=== PATIENT | female | born 1970 | race Caucasian/White ===

== ENCOUNTER 2018-01-21 18:04 | Outpatient (RCR) | payer BC, SELFPAY ==
--- NOTE | 2018-01-22 13:33 | HP.OTEVAL_ITS ---
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 Date of Evaluation: 01/21/18 Occupational Therapist: Jaimee Walsh - Subjective Subjective: Pt seen for intial occupational therapy evaluation for increased R hand pain, CMC joint and MP joint of R thumb. The pain started in November and continues to get worse. She started steroids a few days ago to help relieve her pain. The pain is limiting her abilities to complete BADLs, IADLs and work tasks. She has to do a lot of typing, texting and driving for her job which causes pain in her R hand. She is R hand dominent. Pt has been wearing a thumb spica splint. Pt has osteoarthritis and states old volleyball injuries to her hands from setting. - Pain Right Hand 3 - Objective Objective/Observation: Pt demo increased pain R hand CMC and MP joints limiting her independence with functional tasks and vocational tasks. - ROM ROM Comments: R hand WFL, L hand WFL. No difficulties noted with ROM bilateral hands. 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 Goal:: Pt will demo pain R hand no greater than 1/10 by d/c from OT Goal:: Pt will be educated on joint protection and energy conservation techniques for R hand/thumb with good understanding and demo 100%x. Goal:: Pt will demo increased lateral pinch R hand by 4# to increase strength for BADL tasks. Goal:: Pt will be educated on R hand HEP with good understanding and demo 100%x. - Rehabilitation General Assessment: Pt demo increased pain R hand, thumb region CMC joint, MP joint with all movement indicating a need for occupational therapy services to decrease pain R hand, educate on joint protection and energy conservation techniques, increase R hand strength and educated on HEP. Rehabilitation Potential: Good - Anticipated Interventions Anticipated Interventions: Strengthening, Massage, Modalities, Orthoses, Joint Protection/Energy Conservation, Ergonomic Education, Fine Motor Coord/Juan, ADL Training, Education re assistive Equipment, Education re Self Massage Techniques, Education re Correct Donning Tech,Care&Wearing Sched Comp Garments, Home Program - Visit Plan Frequency: 1-2x /Week Duration: 6 Weeks General Plan: Decrease pain R hand, CMC joint, MP joint of thumb, educate on joint protection and energy conservation techniques, increase R hand strength and educated on HEP R hand. TEXT: Thank you for the opportunity to evaluate your patient. For Medicare and Medicare HMO plans, please review the plan of care and approve it. It will need to be FAXED BACK to us at [phone] for Medicare purposes. Please let me know if there are questions or concerns regarding this plan of care. Physician Signature: Date:
--- NOTE | 2018-02-26 10:37 | HP.OT.NRP ---
HP - Discharge Summary - Patient Information PARMINDER MART was seen in my office for initial evaluation on 01/21/18. The following Plan of Care was established for this patient: Initial Frequency: 1-2x /Week Initial Duration: 6 Weeks - Anticipated Interventions Anticipated Interventions: Strengthening, Massage, Modalities, Orthoses, Joint Protection/Energy Conservation, Ergonomic Education, Fine Motor Coord/Juan, ADL Training, Education re assistive Equipment, Education re Self Massage Techniques, Education re Correct Donning Tech,Care&Wearing Sched Comp Garments, Home Program This patient was last seen in our office 01/21/18. Pertinent comments regarding their Occupational therapy will appear below: Pt seen for OT eval only. Pt d/c from OT services secondary to pt stating she will not be using her OT visits approved. At this point I will be discontinuing this patient from occupational therapy. I would be happy to see this patient again in the future if found appropriate by the physician. Thank you! Jaimee Walsh
== END 2018-01-21 19:00 | disposition home or self-care (01) ==
LOC: OT 18:04
PROVIDERS: Family Provider Family Medicine; PCP Family Medicine; Visit Provider Physician Assistant
DX: M19.041 Primary osteoarthritis, right hand (principal)
CPT/HCPCS: 97165

== ENCOUNTER → 2018-03-17 08:50 | Outpatient (CLI) | payer BC, SELFPAY ==
[2018-03-17 10:17] LABS: Absolute Lymphocyte Count 4.33 X10^3/ul (0.83-4.51); Absolute Neutrophil Count 6.1 X10^3/uL (2.0-7.7); Basophil# 0.02 X10^3/uL; Basophil% 0.2 % (0-1); Eosinophil# 0.31 X10^3/uL; Eosinophils% 2.7 % (0-5); Hemoglobin 13.1 g/dl (12.0-15.0); Lymphocyte # 4.33 X10^3/ul (4.0); Lymphocyte % 37.7 % (19-41); Mean Corp Hgb Conc 33.6 g/gl (32-36); Mean Corpuscular Hgb 30.3 pg (27.0-32.0); Mean Corpuscular Volume 90.1 fL (81-99); Mean Platelet Vol. 8.6 fl (6.2-12.0); Monocyte# 0.66 X10^3/uL; Monocyte% 5.7 % (0-10); Neutrophil # 6.12 X10^3/uL (2.7-7.7); Neutrophil % 53.4 % (47-70); Platelet Count 288 K/mm3 (150-450); RBC Distribution Width CV 13.5 % (11.6-14.6); RBC Distribution Width SD 43.7 fl (35.1-43.9); Red Blood Count 4.33 M/mm3 (4.2-5.4); White Blood Count 11.5 K/mm3 (4.4-11.0)
[2018-03-17 10:22] LABS: POSITIVE COUNT NO; POSITIVE DIFFERENTIAL NO; POSITIVE MORPHOLOGY NO
[2018-03-17 10:41] LABS: ALB/GLOB Ratio 0.8 RATIO (0.9-2.4); AST(SGOT) 17 U/L (15-37); Alanine Aminotransfer ALT/SGPT 21 U/L (13-56); Albumin, Serum 3.1 g/dL (3.2-5.0); Alkaline Phosphatase 100 U/L (45-117); Anion Gap 10 (5-15); BUN 11 mg/dL (7-18); BUN/Creat Ratio 15.7 RATIO (10-20); Chloride 105 mmol/L (98-107); EST Glomerular Filtration Rate 96 mL/min (>60); Est Glom Filt Rate - Afr Amer 116 mL/min (>60); Glucose 89 mg/dL (74-106); Potassium 3.9 mmol/L (3.5-5.1); Protein, Total 7.1 g/dL (6.4-8.2); Sodium Level 139 mmol/L (136-145); Thyroid Stim Hormone (TSH) 2.46 uIU/mL (0.358-3.74)
[2018-03-17 11:10] LABS: Hemoglobin A1c 5.4 % (4.2-6.3)
== END ==
PROVIDERS: Family Provider Family Medicine; PCP Family Medicine; Visit Provider Family Medicine
DX: R10.13 Epigastric pain (principal); E66.9 Obesity, unspecified; Z68.35 Body mass index [BMI] 35.0-35.9, adult
CPT/HCPCS: 36415; 80053; 83036; 84443; 85025

== ENCOUNTER → 2018-06-21 10:28 | Outpatient (CLI) | payer BC, SELFPAY ==
[2018-06-21 12:03] LABS: ALB/GLOB Ratio 0.7 RATIO (0.9-2.4); AST(SGOT) 18 U/L (15-37); Alanine Aminotransfer ALT/SGPT 21 U/L (13-56); Alkaline Phosphatase 106 U/L (45-117); Anion Gap 8 (5-15); BUN 10 mg/dL (7-18); Calcium,Total 8.6 mg/dL (8.5-10.1); Chloride 108 mmol/L (98-107); Creatinine, Serum 0.83 mg/dL (0.55-1.02); EST Glomerular Filtration Rate 79 mL/min (>60); Est Glom Filt Rate - Afr Amer 95 mL/min (>60); Globulin 4.1 g/dL (2.2-4.2); Glucose 170 mg/dL (74-106); Lipase 152 U/L (73-393); Potassium 3.6 mmol/L (3.5-5.1); Protein, Total 7.1 g/dL (6.4-8.2); Sodium Level 140 mmol/L (136-145); Thyroid Stim Hormone (TSH) 1.81 uIU/mL (0.358-3.74)
== END ==
PROVIDERS: Family Provider Family Medicine; PCP Family Medicine; Visit Provider Family Medicine
DX: R10.13 Epigastric pain (principal)
CPT/HCPCS: 36415; 80053; 83690; 84443

== ENCOUNTER → 2018-07-02 07:48 | Outpatient (CLI) | payer BC, SELFPAY | PROVIDERS: Family Provider Family Medicine; PCP Family Medicine; Visit Provider Family Medicine | DX: R10.13 Epigastric pain (principal) | CPT/HCPCS: 74249; 76700 ==

== ENCOUNTER → 2018-07-17 12:42 | Outpatient (CLI) | payer BC, SELFPAY ==
--- NOTE | 2018-07-17 12:47 | NM_ITS ---
CLINICAL: 47-year-old female with reported history of epigastric pain and chronic nausea. SEMI-SOLID PHASE 99m Tc SULFUR COLLOID GASTRIC EMPTYING STUDY COMPARISON: Air contrast upper GI series and small bowel follow-through report 07/02/2018, abdominal ultrasound report 07/02/2018 FINDINGS: The patient was administered 1.0 mCi of 99m Tc sulfur colloid mixed with oatmeal and consumed per os. Image acquisitions in the anterior-posterior projections for a total of 60 minutes. There is prompt visualization of the stomach. There is no gastroesophageal reflux identified. The T1/2 linear fit was calculated to be 39.42 minutes, (Normal: 12-56 minutes). NM/Gastric Emptying Study IMPRESSION: 1. NORMAL 99m Tc sulfur colloid semi-solid phase (oatmeal) gastric emptying imaging examination. A. There is normal and preserved semi-solid phase gastric emptying compared to normal controls. (Vesta et al, J Nucl Med Tech 38: 186, 2010). Electronically Signed: Jamel Rob DO at 23:41 EDT Tel , Service support ,
== END ==
PROVIDERS: Family Provider Family Medicine; PCP Family Medicine; Visit Provider Family Medicine
DX: R10.13 Epigastric pain (principal)
CPT/HCPCS: 78264; A9541

== ENCOUNTER → 2018-08-15 15:03 | Outpatient (CLI) | payer BC, SELFPAY | PROVIDERS: Family Provider Family Medicine; PCP Family Medicine; Referring Provider Family Medicine; Visit Provider Family Medicine | DX: R11.10 Vomiting, unspecified (principal); R19.7 Diarrhea, unspecified | CPT/HCPCS: 87177; 87209; 87329; 87493; 87506 ==

== ENCOUNTER → 2018-08-18 12:11 | Outpatient (CLI) | payer BC, SELFPAY ==
[2018-08-21 09:37] LABS: 5-HIAA, UR 1.7 mg/L (Undefined)
== END ==
PROVIDERS: Family Provider Family Medicine; PCP Family Medicine; Referring Provider Family Medicine; Visit Provider Family Medicine
DX: R19.7 Diarrhea, unspecified (principal); R11.10 Vomiting, unspecified
CPT/HCPCS: 81050; 83497

== ENCOUNTER → 2018-10-07 15:28 | Outpatient (CLI) | payer BC, SELFPAY ==
[2018-10-09 16:09] LABS: Endomysial Antibody IgA Negative (Negative)
[2018-10-10 11:50] LABS: Immunoglobulin A 245 mg/dL (87-352); t-Transglutaminase IgA <2 U/mL (0-3)
== END ==
PROVIDERS: Family Provider Family Medicine; PCP Family Medicine; Referring Provider Internal Medicine Gastroenterology; Visit Provider Internal Medicine Gastroenterology
DX: R10.9 Unspecified abdominal pain (principal); R19.7 Diarrhea, unspecified
CPT/HCPCS: 36415; 82784; 83516; 86140; 86255

== ENCOUNTER → 2018-10-24 15:41 | Outpatient (CLI) | payer BC, SELFPAY ==
--- NOTE | 2018-10-24 | IMM_PTH ---
PATIENT: PARMINDER MART LOC: [facility] U#:[id number] AGE/SX: 55/F ROOM: RE10/24/[address]: Dr. Willard Sears MD : 1970 BED: DIS: SPEC #: [id number] RECD: 10/29/18 12:28 STATUS: EDY REShan #: [id number] PARK: 10/24/18 00:[address]: Willard Sears DEPT: IMMUNOHISTOCHEMISTRY RECD BY: Maria Dolores De Jesus ENTERED: 10/29/18 12:29 SP TYPE: IMMUNO OTHR DR: Dr. Angel Graves MD Tissues: Stomach, NOS Procedures: H Pylori (initial) PHYSICIAN & INSTITUTION [place] [address] SPECIMEN INFORMATION: Tissue Source: Gastric antrum Clinical Info: GERD, nausea Specimen Number: [id number] CPT code: 37974 METHODOLOGY: Deparaffinized sections of prefer/formalin-fixed tissue or PAP/DQ stained slides are incubated with monoclonal/polyclonal antibodies/oligonucleotide probes. Localization is made via biotin free immunoperoxidase method. Appropriate controls are performed and reacted as expected. Results on target cell population are indicated in the following table: RESULTS: ANTIBODY / CLONE RESULT H Pylori (polyclonal) negative These tests were developed and their performance characteristics determined by [facility]. They may not have been cleared or approved by the U.S. Food and Drug Administration. The FDA has determined that such clearance or approval is not necessary. INTERPRETATION: Gastric antrum, biopsy: Negative for Helicobacter pylori organisms. AM:mian 10/30/18
--- NOTE | 2018-10-24 11:57 | GASB_PTH ---
PATIENT: PARMINDER MART LOC: [facility] U#:[id number] AGE/SX: 55/F ROOM: RE10/24/[address]: Dr. Willard Sears MD : 1970 BED: DIS: SPEC #: [id number] RECD: 10/24/18 15:31 STATUS: EDY STEPHANE #: [id number] PARK: 10/24/18 11:[address]: Willard Sears DEPT: SURGICAL PATHOLOGY RECD BY: Jamel Lao ENTERED: 10/27/18 13:19 SP TYPE: Gastric Bx OTHR DR: Dr. Angel Graves MD [facility] Tissues: Gastric mucous membrane Procedures: Surgery Specimen Level IV HEADER OPERATION: EGD with biopsies PRE-OP DIAGNOSIS: GERD, nausea TISSUE SUBMITTED: Gastric antrum biopsies, rule out gastritis MICROSCOPIC DIAGNOSIS Gastric antrum, biopsy: Mild gastritis. See microscopic description and comment. SJ:mian 10/29/18 COMMENT The results of immunohistochemistry for Helicobacter pylori will be reported separately ([id number]). MICROSCOPIC DESCRIPTION Slides are reviewed. The specimen shows fragments of gastric mucosa with chronic inflammatory cell infiltrates in the lamina propria consisting of lymphocytes and plasma cells, consistent with mild chronic gastritis. GROSS DESCRIPTION Received in fixative is one container labeled with the patient's name and designated gastric antrum biopsy. The specimen consists of multiple irregular fragments of light neal soft tissue that in aggregate measure 0.5 x 0.5 x 0.1 cm. The specimen is totally submitted in one cassette. / SJ:rg 10/27/18 TC:3 CPT: 63163
== END ==
PROVIDERS: Family Provider Family Medicine; PCP Family Medicine; Referring Provider Internal Medicine Gastroenterology; Visit Provider Internal Medicine Gastroenterology
DX: K21.9 Gastro-esophageal reflux disease without esophagitis (principal); R11.0 Nausea
CPT/HCPCS: 88305; 88342

== ENCOUNTER → 2018-12-05 16:14 | Outpatient (CLI) | payer BC, SELFPAY ==
--- NOTE | 2018-12-05 11:03 | COLBX_PTH ---
PATIENT: PARMINDER MART LOC: [facility] U#:[id number] AGE/SX: 55/F ROOM: RE12/05/[address]: Dr. Willard Sears MD : 1970 BED: DIS: SPEC #: [id number] RECD: 12/05/18 15:52 STATUS: EDY STEPHANE #: [id number] PARK: 12/05/18 11:[address]: Willard Sears DEPT: SURGICAL PATHOLOGY RECD BY: Babar Quinones ENTERED: 12/08/18 09:33 SP TYPE: COLON BX OTHR DR: Dr. Angel Graves MD [facility] Tissues: A - Ileum, NOS B - COLON BIOPSY Procedures: Surgery Specimen Level IV HEADER OPERATION: Colonoscopy with biopsies PRE-OP DIAGNOSIS: Chronic diarrhea TISSUE SUBMITTED: A - Terminal ileum, rule out Crohn's, B - Right and left colon biopsies, rule out microscopic colitis MICROSCOPIC DIAGNOSIS A. Terminal ileum, biopsy: Prominent benign lymphoid aggregates. See comment. B. Right and left colon, biopsy: No pathologic diagnosis. AM:mian 12/09/18 COMMENT A. No evidence of Crohn's enteritis. MICROSCOPIC DESCRIPTION Slides are reviewed. GROSS DESCRIPTION A - Received in fixative is one container labeled with the patient's name and designated terminal ileum. The specimen consists of one irregular fragment of light neal soft tissue that measures 0.4 x 0.2 x 0.1 cm. The specimen is totally submitted in one cassette. B - Received in fixative is one container labeled with the patient's name and designated right and left colon biopsy. The specimen consists of multiple irregular fragments of light neal soft tissue that in aggregate measure 1 x 0.6 x 0.1 cm. The specimen is totally submitted in one cassette. / AM:mian 12/08/18 TC:5 CPT: 72707 x2
== END ==
PROVIDERS: Family Provider Family Medicine; PCP Family Medicine; Referring Provider Internal Medicine Gastroenterology; Visit Provider Internal Medicine Gastroenterology
DX: K52.9 Noninfective gastroenteritis and colitis, unspecified (principal)
CPT/HCPCS: 88305

== ENCOUNTER → 2018-12-22 12:31 | Outpatient (CLI) | payer BC, SELFPAY ==
--- NOTE | 2018-12-22 12:36 | RAD_ITS ---
STUDY: X-RAY CHEST REASON FOR EXAM: Female, 48 years old. Cough and shortness of breath TECHNIQUE: PA and lateral views of the chest. COMPARISON: None. FINDINGS: The lungs are clear and expanded. There is no demonstrated pleural abnormality. Normal size heart. Normal mediastinum and laure. Normal visualized pulmonary arteries. Normal visualized aortic arch and descending thoracic aorta. Dextroscoliosis is noted with scoliosis fixation rods. Normal visualized ribs, clavicles, and shoulders. There is no demonstrated abnormality of the visualized soft tissue structures of the upper abdomen. RAD/Chest PA and Lateral IMPRESSION: No acute cardiopulmonary disease Electronically Signed: Ozzy Alonso DO at 12:59 EST Tel , Service support ,
[2018-12-24 10:35] LABS: B. pertussis IgA 1.6 index (0.0-0.9); B. pertussis IgG 1.32 index (0.00-0.94); B. pertussis IgM < 1.0 index (0.0-0.9)
== END ==
PROVIDERS: Family Provider Family Medicine; PCP Family Medicine; Referring Provider Family Medicine; Visit Provider Family Medicine
DX: R05 Cough (principal)
CPT/HCPCS: 36415; 71046

== ENCOUNTER → 2019-02-02 17:18 | Outpatient (CLI) | payer BC, SELFPAY ==
[2019-02-02 17:39] LABS: Absolute Lymphocyte Count 4.27 X10^3/ul (0.83-4.51); Absolute Neutrophil Count 6.1 X10^3/uL (2.0-7.7); Basophil# 0.02 X10^3/uL; Basophil% 0.2 % (0-1); Eosinophil# 0.29 X10^3/uL; Eosinophils% 2.5 % (0-5); Hematocrit 41.7 % (37-47); Hemoglobin 13.5 g/dl (12.0-15.0); Lymphocyte # 4.27 X10^3/ul (4.0); Lymphocyte % 37.4 % (19-41); Mean Corp Hgb Conc 32.4 g/gl (32-36); Mean Corpuscular Hgb 28.2 pg (27.0-32.0); Mean Corpuscular Volume 87.1 fL (81-99); Mean Platelet Vol. 8.2 fl (6.2-12.0); Monocyte# 0.68 X10^3/uL; Neutrophil # 6.12 X10^3/uL (2.7-7.7); Neutrophil % 53.6 % (47-70); Platelet Count 307 K/mm3 (150-450); RBC Distribution Width CV 13.8 % (11.6-14.6); RBC Distribution Width SD 43.3 fl (35.1-43.9); Red Blood Count 4.79 M/mm3 (4.2-5.4); White Blood Count 11.4 K/mm3 (4.4-11.0)
[2019-02-02 17:40] LABS: POSITIVE COUNT NO; POSITIVE DIFFERENTIAL NO; POSITIVE MORPHOLOGY NO
[2019-02-02 17:52] LABS: Erythrocyte Sedimentation Rate 23 mm/hr (0-20)
[2019-02-02 18:02] LABS: ALB/GLOB Ratio 0.8 RATIO (0.9-2.4); AST(SGOT) 17 U/L (15-37); Alanine Aminotransfer ALT/SGPT 25 U/L (13-56); Albumin, Serum 3.4 g/dL (3.2-5.0); Alkaline Phosphatase 120 U/L (45-117); Anion Gap 7 (5-15); BUN 10 mg/dL (7-18); BUN/Creat Ratio 10.5 RATIO (10-20); Chloride 107 mmol/L (98-107); Creatinine, Serum 0.95 mg/dL (0.55-1.02); EST Glomerular Filtration Rate 67 mL/min (>60); Est Glom Filt Rate - Afr Amer 81 mL/min (>60); Globulin 4.4 g/dL (2.2-4.2); Glucose 134 mg/dL (74-106); Potassium 3.7 mmol/L (3.5-5.1); Protein, Total 7.8 g/dL (6.4-8.2); Sodium Level 139 mmol/L (136-145)
== END ==
PROVIDERS: Family Provider Family Medicine; PCP Family Medicine; Referring Provider Family Medicine; Visit Provider Family Medicine
DX: R10.31 Right lower quadrant pain (principal)
CPT/HCPCS: 36415; 80053; 85025; 85652; 86140

== ENCOUNTER → 2019-02-03 10:36 | Outpatient (CLI) | payer BC, SELFPAY ==
--- NOTE | 2019-02-03 10:41 | CT_ITS ---
STUDY: CT ABDOMEN AND PELVIS WITH AND WITHOUT CONTRAST REASON FOR EXAM: Female, 48 years old. One-week history of right lower quadrant pain and hematuria. RADIATION DOSAGE (If Supplied By Facility): CTDIvol = ( 22.92 ) mGy, DLP = ( 2149.72 ) mGycm TECHNIQUE: Transaxial images were obtained from the dome of the diaphragm to the symphysis pubis with oral contrast. 100ML IV/Oral Isovue 300 was administered. Sagittal and coronal images were reconstructed. Individualized dose optimization techniques were used for this CT. COMPARISON: None. FINDINGS: The visualized lung bases are unremarkable. The visualized portions of the heart are within normal limits. Normal liver. There are surgical clips in the gallbladder fossa consistent with a prior cholecystectomy. There are multiple benign calcified granulomata of the spleen. Normal pancreas. Normal bilateral adrenal glands. Normal right kidney. Normal left kidney. Normal visualized stomach. Normal small intestine. There are scattered colonic diverticula consistent with diverticulosis. Moderate amount of fecal material is seen in the colon. There are surgical clips in the region of the appendix consistent with a prior appendectomy. Normal abdominal aorta. Normal inferior vena cava. Normal retroperitoneum. Normal urinary bladder. There is a small umbilical hernia containing fat. Mild dextroscoliosis of the thoracic spine with Hauser phil fixation. CT/CT Abd/Pelvis W/WO Contrast IMPRESSION: Scattered sigmoid diverticulosis. Electronically Signed: Qamar Andrew, at 13:08 EDT , Service support ,
== END ==
PROVIDERS: Family Provider Family Medicine; PCP Family Medicine; Referring Provider Family Medicine; Visit Provider Family Medicine
DX: R10.31 Right lower quadrant pain (principal)
CPT/HCPCS: 74178; Q9967

== ENCOUNTER → 2019-10-13 11:51 | Outpatient (CLI) | payer BC, SELFPAY ==
[2019-10-13 11:55] LABS: Bacteria 0 SEEN /hpf (None Seen); Lyme Ab Screen Interpretation REF LAB; Mucous, Urine 0 SEEN /hpf (<or=2+); Red Blood Cells-Urine 0 SEEN /hpf (0-5); White Blood Cells 0 SEEN /hpf (0-5)
[2019-10-13 13:53] LABS: Erythrocyte Sedimentation Rate 50 mm/hr (0-20)
[2019-10-13 13:57] LABS: Color, Urine Yellow (Yellow); Glucose, Dipstick Normal (Normal); Ketone-Dipstick Negative (Negative); Leukocyte Esterase-Dipstick Negative /ul (Negative); Nitrite-Dipstick Negative (Negative); Occult Blood-Urine Negative /ul (Negative); Protein-Dipstick Negative (Negative); Specific Gravity, Urine 1.005 (1.002-1.030); Urine Bilirubin Dipstick Negative (Negative); Urine Clarity Sl. Cloudy (Clear); Urine Urobilinogen Normal (Normal)
[2019-10-13 14:04] LABS: Absolute Lymphocyte Count 2.31 X10^3/uL (0.83-4.51); Absolute Neutrophil Count 11.2 X10^3/uL (2.0-7.7); Basophil# 0.02 X10^3/uL; Basophil% 0.1 % (0-1); Hematocrit 42.2 % (37-47); Hemoglobin 13.8 g/dL (12.0-15.0); Lymphocyte # 2.31 X10^3/ul (4.0); Mean Corp Hgb Conc 32.7 g/dL (32-36); Mean Corpuscular Hgb 29.4 pg (27.0-32.0); Mean Platelet Vol. 8.5 fl (6.2-12.0); Monocyte# 0.81 X10^3/uL; Monocyte% 5.6 % (0-10); NRBC Flagged by Analyzer 0 % (0-5); Neutrophil # 11.22 X10^3/uL (2.7-7.7); Neutrophil % 77.8 % (47-70); Platelet Count 337 K/mm3 (150-450); RBC Distribution Width CV 13.1 % (11.6-14.6); RBC Distribution Width SD 42.7 fl (35.1-43.9); Red Blood Count 4.69 M/mm3 (4.2-5.4); White Blood Count 14.4 K/mm3 (4.4-11.0)
[2019-10-13 14:05] LABS: Squamous Epithelial Cells - UA 0-5 SEEN /hpf (5-10)
[2019-10-13 14:08] LABS: CRP 7.56 mg/L (0.0-3.0)
[2019-10-14 15:02] LABS: ANTINUCLEAR ANTIBODIES DIRECT Negative (Negative)
[2019-10-16 03:07] LABS: QNTFERON TB Mitogen Value 9.39 IU/mL (.); QNTFERON TB Nil Value 0.08 IU/mL (.); QNTFERON TB1+ Ag Value 0.09 IU/mL (.); QNTFERON TB2+ Ag Value 0.09 IU/mL (.)
[2019-10-16 09:53] LABS: Lyme Scn Total Ab w/Rflx <0.91 ISR (0.00-0.90); QNTIFERON TB Positive Criteria Negative (Negative)
== END ==
PROVIDERS: Family Provider Family Medicine; PCP Family Medicine; Visit Provider Family Medicine
DX: D72.829 Elevated white blood cell count, unspecified (principal)
CPT/HCPCS: 36415; 81001; 85025; 85652; 86038; 86140; 86480; 86618; 87086; 87088

== ENCOUNTER → 2019-10-15 12:37 | Outpatient (CLI) | payer BC, SELFPAY ==
--- NOTE | 2019-10-15 12:45 | CT_ITS ---
STUDY: CT MAXILLOFACIAL SINUSES REASON FOR EXAM: Female, 49 years old. Leukocytosis RADIATION DOSAGE (If Supplied By Facility): CTDIvol = ( 33.45 ) mGy, DLP = ( 545.52 ) mGycm TECHNIQUE: The patient was scanned in a multi detector CT scanner. High resolution axial imaging was performed without the administration of intravenous contrast material. Sagittal and coronal images were reconstructed. Individualized dose optimization techniques were used for this CT. COMPARISON: None. FINDINGS: FRONTAL SINUSES: Normal aeration, without mucosal inflammatory disease. ETHMOIDAL SINUSES: Normal aeration, without mucosal inflammatory disease. MAXILLARY SINUSES: Air-filled mucous retention cyst in the right maxilla sinus consistent with chronic sinusitis. SPHENOIDAL SINUSES: Normal aeration, without mucosal inflammatory disease. There is patency of the bilateral maxillary infundibuli with normal uncinate processes, ethmoid bullae, and hiatus semilunaris. The right ostiomeatal unit is stenotic but felt to be patent. Normal bilateral middle turbinates. Normal bilateral inferior turbinates. Normal midline nasal septum. There is patency of the bilateral nasal airways. The visualized osseous structures are normal. The visualized bilateral orbital contents are normal. CT/Sinus/Facial Bone IMPRESSION: Chronic right maxillary sinusitis with a air-filled mucous retention cyst. Electronically Signed: Jamel Fox MD at 16:29 EST Tel , Service support ,
== END ==
PROVIDERS: Family Provider Family Medicine; PCP Family Medicine; Referring Provider Family Medicine; Visit Provider Family Medicine
DX: J32.9 Chronic sinusitis, unspecified (principal)
CPT/HCPCS: 70486

== ENCOUNTER → 2019-10-26 13:51 | Outpatient (CLI) | payer BC, SELFPAY ==
--- NOTE | 2019-10-26 13:53 | CT_ITS ---
STUDY: CT ABDOMEN AND PELVIS WITH CONTRAST REASON FOR EXAM: Female, 49 years old. RLQ pain x 8 months, elevated WBC and amp; inflammation markers. Prior cholecystectomy, appendectomy, x 2. RADIATION DOSAGE (If Supplied By Facility): CTDIvol = ( 18.01 ) mGy, DLP = ( 1093.36 ) mGycm TECHNIQUE: Transaxial images were obtained from the dome of the diaphragm to the symphysis pubis with oral contrast. 100mL Isovue-300 was administered. Sagittal and coronal images were reconstructed. Individualized dose optimization techniques were used for this CT. COMPARISON: None. FINDINGS: There is right lower lung granuloma. The visualized portions of the heart are within normal limits. There is hepatomegaly with diffuse hepatic enlargement. There are surgical clips in the gallbladder fossa consistent with a prior cholecystectomy. There are multiple benign calcified granulomata of the spleen. Normal pancreas. Normal bilateral adrenal glands. Normal right kidney. Normal left kidney. Normal visualized stomach. Normal small intestine. Normal colon. There are surgical clips in the region of the appendix consistent with a prior appendectomy. Normal abdominal aorta. Normal inferior vena cava. Normal retroperitoneum. Normal urinary bladder. Normal visualized uterus. There is no free fluid in the abdomen or pelvis. There is a small umbilical hernia containing fat. There is scoliotic curvature of the spine. There is postoperative change of the thoracic spine. CT/Abdomen/Pelvis WITH Contrast IMPRESSION: Hepatomegaly. Old granulomatous disease. No obstruction. Electronically Signed: Oscar Zarate MD at 22:00 EST , Service support ,
== END ==
PROVIDERS: Family Provider Family Medicine; PCP Family Medicine; Referring Provider Family Medicine; Visit Provider Family Medicine
DX: R10.31 Right lower quadrant pain (principal)
CPT/HCPCS: 74177; Q9967

== ENCOUNTER → 2019-11-03 15:48 | Outpatient (CLI) | payer BC, SELFPAY ==
[2019-11-03 16:30] LABS: Absolute Lymphocyte Count 3.95 X10^3/uL (0.83-4.51); Absolute Neutrophil Count 5.7 X10^3/uL (2.0-7.7); Basophil# 0.03 X10^3/uL; Basophil% 0.3 % (0-1); Eosinophil# 0.33 X10^3/uL; Eosinophils% 3.1 % (0-5); Hematocrit 38.4 % (37-47); Hemoglobin 12.6 g/dL (12.0-15.0); Lymphocyte # 3.95 X10^3/ul (4.0); Lymphocyte % 37.6 % (19-41); Mean Corp Hgb Conc 32.8 g/dL (32-36); Mean Corpuscular Hgb 29.1 pg (27.0-32.0); Mean Corpuscular Volume 88.7 fL (81-99); Mean Platelet Vol. 8.2 fl (6.2-12.0); Monocyte# 0.45 X10^3/uL; Monocyte% 4.3 % (0-10); NRBC Flagged by Analyzer 0 % (0-5); Neutrophil # 5.73 X10^3/uL (2.7-7.7); Neutrophil % 54.5 % (47-70); Platelet Count 275 K/mm3 (150-450); RBC Distribution Width CV 13.1 % (11.6-14.6); RBC Distribution Width SD 42.5 fl (35.1-43.9); Red Blood Count 4.33 M/mm3 (4.2-5.4); White Blood Count 10.5 K/mm3 (4.4-11.0)
[2019-11-03 16:44] LABS: Erythrocyte Sedimentation Rate 32 mm/hr (0-20)
== END ==
PROVIDERS: Family Provider Family Medicine; PCP Family Medicine; Referring Provider Family Medicine; Visit Provider Family Medicine
DX: D72.829 Elevated white blood cell count, unspecified (principal)
CPT/HCPCS: 36415; 85025; 85652; 86140

== ENCOUNTER → 2019-12-21 | Outpatient (CLI) | payer BC, SELFPAY ==
[2019-12-21 13:53] LABS: Absolute Neutrophil Count 5.4 X10^3/uL (2.0-7.7); Basophil# 0.03 X10^3/uL; Basophil% 0.3 % (0-1); Eosinophils% 2.9 % (0-5); Hematocrit 38.6 % (37-47); Hemoglobin 12.2 g/dL (12.0-15.0); Lymphocyte % 38.1 % (19-41); Mean Corp Hgb Conc 31.6 g/dL (32-36); Mean Corpuscular Hgb 28.3 pg (27.0-32.0); Mean Corpuscular Volume 89.6 fL (81-99); Mean Platelet Vol. 8.5 fl (6.2-12.0); Monocyte# 0.59 X10^3/uL; Monocyte% 5.8 % (0-10); NRBC Flagged by Analyzer 0 % (0-5); Neutrophil % 52.7 % (47-70); Platelet Count 282 K/mm3 (150-450); RBC Distribution Width SD 42.7 fl (35.1-43.9); Red Blood Count 4.31 M/mm3 (4.2-5.4); White Blood Count 10.2 K/mm3 (4.4-11.0)
[2019-12-21 14:12] LABS: ALB/GLOB Ratio 0.9 RATIO (0.9-2.4); AST(SGOT) 15 U/L (15-37); Alanine Aminotransfer ALT/SGPT 34 U/L (13-56); Albumin, Serum 3.5 g/dL (3.2-5.0); Alkaline Phosphatase 144 U/L (45-117); Anion Gap 4 (5-15); BUN 13 mg/dL (7-18); BUN/Creat Ratio 17.5 RATIO (10-20); Calcium,Total 9.4 mg/dL (8.5-10.1); Chloride 107 mmol/L (98-107); Creatinine, Serum 0.74 mg/dL (0.55-1.02); EST Glomerular Filtration Rate 89 mL/min (>60); Est Glom Filt Rate - Afr Amer 108 mL/min (>60); Globulin 3.9 g/dL (2.2-4.2); Glucose 94 mg/dL (74-106); Potassium 4.4 mmol/L (3.5-5.1); Protein, Total 7.4 g/dL (6.4-8.2); Sodium Level 140 mmol/L (136-145)
== END | disposition home or self-care (01) ==
LOC: MFPLAB 11:47
PROVIDERS: PCP Family Medicine; Referring Provider Family Medicine; Visit Provider Family Medicine
DX: Z01.818 Encounter for other preprocedural examination (principal)
CPT/HCPCS: 36415; 80053; 85025

== ENCOUNTER 2020-01-01 06:08 | Day surgery (SDC) | payer BC, SELFPAY ==
[2020-01-01] VITALS (12 sets, daily range): BP systolic 119–128; BP diastolic 64–85; PULSE 80–100; RESP 16; TEMP 36.7–37.2; O2SAT 91–97; BMI 37.2
[2020-01-01] MEDS: Lactated Ringers 1,000 ML 100 ML IV (06:52)
[2020-01-01 07:10] LABS: Internal QC Validated? YES +Cl - CLEAR BKGD; Pregnancy, Urine Negative Negative
[2020-01-01] MEDS: Cefazolin 2 GM in 0.9% Normal Saline 100 ML IV (07:30)
--- NOTE | 2020-01-01 07:30 | RAD_ITS ---
STUDY: X-RAY - LEFT FOOT CLINICAL: Female, 49 years old. Left foot bunion correction including fusion, mary of the left great toe, 2nd hammer toe correction with mid foot fusion, internal fixation with bone grafts. TECHNIQUE: 13 view(s) of the foot. COMPARISON: None. FINDINGS: There is fusion with plate and multiple screws of the first metatarsal tarsal articulation. There are orthopedic andra and screws stabilizing the second and third metatarsal tarsal articulations. There is status post osteotomy changes of the mid shaft of the first proximal phalanx stabilized with staple. There is fixation of the second digital ray with screw. RAD/Foot min 3 Views IMPRESSION: Intraoperative postsurgical changes of the left foot as detailed above. A total of 110.8 seconds of fluoroscopy time was used. Estimated radiation dose 2.63 mGy Electronically Signed: Kevin Villeda MD at 17:28 EST , Service support ,
[2020-01-01] MEDS: Bupivacaine Mpf 0.5% 30 ML VIAL (12:00)
--- NOTE | 2020-01-01 12:32 | OP.PCM_ITS ---
Problem List (1) Hallux valgus (acquired), left foot Status: Chronic (2) Hammer toe of left foot Status: Chronic (3) Secondary osteoarthritis, left ankle and foot Status: Chronic (4) Left foot pain Status: Chronic Report of Operation Date of Procedure: 01/01/20 Pre-Operative Diagnosis: Left foot hallux valgus. Left foot second hammertoe. Left foot symptomatic midfoot arthritis Post-Operative Diagnosis: Left foot hallux valgus. Left foot second hammertoe. Left foot symptomatic midfoot arthritis Surgery/Procedure Performed:: -Left foot bunionectomy including arthrodesis of first metatarsal cuneiform arthrodesis with internal fixation. -Left mary osteotomy with internal fixation. -Left foot second and third tarsometatarsal arthrodesis with internal fixation. -Left foot second hammer digit syndrome correction including arthrodesis of the proximal interphalangeal joint Description of Surgical Findings:: Hemostasis: Well-padded pneumatic left ankle tourniquet, 250 mmHg, 120 minutes, 60 minutes Materials: 2-0 Vicryl, 4-0 nylon, 1 Arthrex plantar Lapidus plate with fully threaded cancellous screw, 2 cortical screws, 2 locking screws, 3?2.5 FT compression screws, 3 andra Specimens: None Complications: None The patient tolerated the procedure and anesthesia well. She was transported to the PACU with vital signs stable and vascular status intact to the left lower extremity. She will be discharged home pending continued stability and pain control. Postoperative x-rays were reviewed prior to leaving the operating room which demonstrated adequate deformity correction and also desired placement of hardware including the trajectory and position. No acute injuries were noted. She will remain nonweightbearing and will ice and elevate for pain and inflammation management. Her postoperative orders were entered electronically. escalator constructor: none - Surgeon: Sherry Doshi DPM. Sheet Metal Shop Foreman: Gokul Iniguez PGY2 Type of Anesthesia:: General, Local - Preoperative: One-to-one mixture of 1% lidocaine plain and 0.5% Marcaine plain administered in typical ankle block fashion, 20 cc Postoperative: One-to-one mixture of 1% lidocaine plain and 0.5% Marcaine plain ministered and typical ankle block fashion local infiltration to surgical sites, 20 cc Specimen's removed: None Estimated Blood Loss (mL): <200 mL Description of Procedure: Indications: This 49-year-old female with significant past medical history of inflammatory bowel disease, depression, and scoliosis continues to have ongoing left chronic foot pain in which she is unable to bear weight in a shoe without significant pain. Her pain is affecting her daily activities and she has failed conservative care including activity modification, rest, elevation, [id number] medications, foot exercises, shoe gear change. Her neurovascular status is intact. She has a clinic bunion that is symptomatic with prominent medial eminence of the first metatarsal head, lateral hallux deviation, pain to palpate dorsal contraction of second digit, and pain to palpate and manipulate the midfoot. Radiographically preoperatively, she demonstrates lateral hallux deviation with increased intermetatarsal angle and lateral appearance of the sesamoid apparatus and also some proximal gapping at the proximal first intermetatarsal space. This is consistent with a triplanar first ray deformity. She also has dorsal contraction of the second toe. She also has some diminished joint spaces to the second and third metatarsal tarsal aspects. She was seen prior at the [facility] and had a CT scan performed and this confirmed that she did have some degenerative changes to the second and third metatarsal tarsal articulations as well consistent with arthritis. She kept track of the location of her pain by marking her foot and it seems pretty consistent with the aforementioned areas. She does have a breaking metatarsal, however this is not clinically uncomfortable. Her neurovascular status is intact. The preoperative indication, planned procedure, possible benefits, risk, complications, and anticipated healing time management were discussed in detail with the patient. She understands and elects to proceed with surgery at this time. No guarantees are made. Informed surgical consent and the surgical limb were signed. She understands the risks and complications include but are not limited to the following: pain, swelling, scarring, over or under correction, arthritis, hardware failure, transfer lesions, need for further surgery, loss of limb, function, life, chronic pain, blood clot, allergic reaction. Her preoperative medical clearance with Dr. Regalado was reviewed including diagnostic data of CBC, CMP, and urine . No gross abnormalities were noted. I answered all of her questions. Procedure in detail: The patient was transported to the operating room via cart and placed on the operating table in the supine position. Final verification the patient, surgery, limb designation was performed via the timeout procedure. IV antibiotics were administered preoperatively. The anesthesia team initiated general anesthesia. The podiatry team administered the preoperative local anesthetic. A well padded left ankle tourniquet was placed in a well padded manner. The left lower extremity was prepped and draped in the usual aseptic manner. An Esmarch bandage was used to exsanguinate the left limb and surgery began the following: Attention was first directed at the medial aspect of the first metatarsal cuneif orm articulation area in which a medial incision was made through the skin. Blunt dissection was performed down to the interface between the abductor hallucis muscle belly and plantar first metatarsal. Care was taken to identify, protect, and retract all neurovascular structures at this point and throughout the remainder of surgery. The desired interface was identified and carefully dissected. The first metatarsocuneiform articulation was identified clinically and confirmed with intraoperative fluoroscopy. A 15 blade, osteotomes and curettes were used to denude the articular surface down to bleeding healthy subchondral bone in the remaining bone surfaces were mobilized to allow for correction. A k-wire and tenaculum were placed with the first metatarsal now with varus rotation correction achieved. Sesamoid reduction, decreased first intermetatarsal angle, and [id number] approximation was confirmed with intraoperative fluoroscopy. Cancellous bone chips were placed into the art hrodesis site and temporary fixation across the site with K wires placed. A plantar Arthrex Lapidus plate was fashioned and temporary held in place with wires and BB taks. The plate was secured distally prior to compression screw application. Care was taken to remove all temporary fixation while the compression was applied. Lastly the plate was secured proximally and the unit was clinically and radiographically stressed and appeared to be stable as one solid unit with maintained deformity correction. The reduction was maintained and all screws and hardware placement maintained the proper and desired trajectory. Next, attention was directed to the dorsal midfoot in which a curvilinear incision was made over the second and third tarsometatarsal areas. Blunt dissection was performed down taking care to avoid neurovascular structures and incision was made over the capsular area. The proper joints were identified with intraoperative fluoroscopy and with direct visualization. The tourniquet was deflated at this time and brisk capillary refill time was noted to all the digits of the left foot. It was deflated for a minimum of 25 minutes. The adjacent joint surfaces were denuded with instrumentation and compression was performed by dorsiflexion of the digits. Arthrex staple decompression screws were used for fixation utilizing proper AO fixation technique. Adequate mireya massiel was also obtained. Small amount of cancellus bone chips were also applied to these areas to fill any voids. Next, attention was directed to the second digit in which a transverse oriented, elliptical incision made through the skin over the proximal interphalangeal joint. Blunt dissection was performed carefully down to the extensor tendon and this was transected and reflected proximally to allow good exposure. Exsanguination was performed again and the tourniquet was reinflated at this time. The collateral ligaments were released and the second proximal phalanx head and middle phalanx base were exposed. A sagittal saw was used to perform a resection of the head a rongeur was used to remove the articular surface of the base of the middle phalanx. The bones were reapproximated with a wire which was applied in a retrograde manner. One mini FT compression screw was applied across the proximal interphalangeal joint arthrodesis site and also across the distal interphalangeal joint to maintain a rectus toe. It is noted she had prior lateral deviation of the distal interphalangeal joint that was semi reducible. This deviation of the toe corresponded with her previous hallux that was pressing on this site. Next, attention was directed to the first metatarsophalangeal joint in which the remaining bunion deformity was evaluated. The previous incision was extended distally. Again blunt dissection was performed and care was taken to avoid neurovascular structures. The capsule was identified and this was incised with a 15 blade was carefully dissected off of the lower aspect of proximal phalanx in preparation to perform an Mary bone cut and also off of the first metatarsal head. A sagittal saw was used to resect the hypertrophic medial prominent eminence taking care to preserve the sagittal sulcus. The joint was smooth and gliding and there was no visualized evidence of osteochondral defect of the first metatarsal head. The extensor hallucis brevis was next release and the hallux became more reducible in the transverse plane. An Mary was next performed via sagittal saw at the metaphyseal diaphyseal junction proximal phalanx cortex of the hallux. This was reduced and a staple was applied for fixation. This allowed additional correction of the hallux to be placed in a more rectus toe position; there was no longer pressure being applied to the adjacent second toe. Next, a capsulorrhaphy was used for tendon balancing procedure to maintain this hallux position. The tourniquet was deflated at this time and brisk capillary refill time was noted to all digits of the left foot. No pulsatile bleeding was noted. Deep layered closure was achieved to all surgical sites with Vicryl taking care to maintain a balanced tissue closure. The skin was next reapproximated with nylon with horizontal simple suture technique. Clinically the fixation was solid and the deformities were reduced. After procedure: The patient tolerated the procedure and anesthesia well. She was stable and vascular status was intact to the left lower extremity. She was advised to ice and elevate for pain and inflammation management. A pain medication prescription was previously sent to her pharmacy, and she was advised on safe and proper use [place]. Zofrmorro was also sent to her pharmacy for potential nausea because she reports she had previous nausea after surgery. She was advised to maintain a strict nonweightbearing status. She has crutches and a knee roller already. Postoperative x-rays were reviewed as noted prior to leaving the operating room. She will be discharged home later today upon continued pain control. Her postoperative orders were entered electronically. Sherry Doshi DPM, [facility] - Complications none - Admit VTE Documentation VTE Present on Admission: No VTE Mechan Device Prophylaxis: SCD's VTE Pharm Prophylaxis ordered?: No Reason prophylaxis not ordered:: Procedure Not Indicated
--- NOTE | 2020-01-01 12:44 | PCM.DC.POD ---
Discharge Diet: No Restrictions Discharge Activity: May Not Shower, Use Walker, Use Crutches, - - use knee roller Weight Bearing Status: No weight bearing Keep extremity elevated above heart level: Left Leg Call your doctor if your incision/area has: Continuous Slow Oozing, Sudden Increased Bleeding, Increased Pain/ Swelling, Increased Redness, Foul Smelling Discharge, Swelling at the incision site Call your doctor if you observe: Fever of 101 or Higher, Calf discomfort, Uncontrolled pain Cleanse incision/area with: Soap & Water, Normal Saline, Do not get Incision Wet, Keep Dressing Clean & Dry Allergies/Adverse Reactions: Allergies No Known Allergies Allergy (Verified 12/25/19 14:25) Medications to take at Discharge Baclofen 10 mg PO BID 12/25/19 Escitalopram Oxalate [Lexapro] 10 mg PO DAILY 12/25/19 Naltrexone HCl/Bupropion HCl [Contrave ER 8-90 mg Tablet] 2 ea PO BID 12/25/19 Omeprazole [Prilosec] 20 mg PO DAILY 12/25/19 Ondansetron HCl [Zofran] 4 mg PO Q8 PRN 4 Days #10 tab 01/01/20 The following prescriptions were given: Ondansetron HCl [Zofran] 4 mg PO Q8 PRN 4 Days #10 tab PRN Reason: Nausea Transmission Status: Received by [id number] Primary Care Physician: Angel Graves MD [Primary Care Provider] - Test Results: Test results from this visit will be discussed in further detail at your follow-up appointment, if applicable. Please Follow Up With: Sherry Doshi DPM When: [facility] week [facility]. Call [phone] sooner if questions. Proposed Discharge Date: 01/01/20
--- NOTE | 2020-01-01 13:18 | RAD_ITS ---
STUDY: X-RAY - LEFT FOOT CLINICAL: Female, 49 years old. POST OP; -- BUNION CORRECTION, MIDFOOT FUSION, HAMMERTOE CORRECTION TECHNIQUE: 3 view(s) of the foot. COMPARISON: None. FINDINGS: This patient has a metallic threaded screw in place in the distal tibial metaphysis. In addition has been a surgical arthrodesis involving the phalanx second toe and a surgically created fracture and fusion involving the proximal phalanx of the great toe. Patient''s had a surgical arthrodesis involving the first metatarsal medial cuneiform articulation and the second and third metatarsal cuneiform articulations. RAD/Foot min 3 Views IMPRESSION: 1. Surgical arthrodesis involving the phalanxes of the second toe. 2. Surgically created fracture and fusion of the proximal phalanx of the great toe. 3. Surgical arthrodesis of the bases of the first, second, and third metatarsal cuneiform articulations. Electronically Signed: Rosendo Randhawa, at 14:00 EST Tel , Service support ,
[2020-01-01] MEDS: HYDROcodone Bitartrate/Apap 5/325 Tablet PO (14:12)
[2020-01-01] MEDS: Ketorolac 30 MG/ML Syringe IV (14:16)
== END 2020-01-01 17:24 | disposition home or self-care (01) ==
LOC: SDC 06:10 → AC 06:10
PROVIDERS: Anesthesiology; PCP Family Medicine; Referring Provider Podiatrist; Visit Provider Podiatrist
PROC: (CPT 28292; principal; 2020-01-01 07:15)
DX: M20.12 Hallux valgus (acquired), left foot (principal); M20.42 Other hammer toe(s) (acquired), left foot; M19.272 Secondary osteoarthritis, left ankle and foot; E66.9 Obesity, unspecified; G47.33 Obstructive sleep apnea (adult) (pediatric); F33.1 Major depressive disorder, recurrent, moderate; K21.9 Gastro-esophageal reflux disease without esophagitis; Z79.899 Other long term (current) drug therapy; Z68.38 Body mass index [BMI] 38.0-38.9, adult
CPT/HCPCS: 01480; 28285; 28295; 28297; 28730; 73630; 76000; 81025; C1713; J7120; J2405

== ENCOUNTER 2020-01-12 19:34 | Emergency (ER) | payer BC, SELFPAY ==
[2020-01-01 06:44] VITALS: BMI 37.2
[2020-01-12 19:35] VITALS: BP 117/82; PULSE 84; RESP 16; TEMP 36.5; O2SAT 97; BMI 36.6
--- NOTE | 2020-01-12 19:55 | RAD_ITS ---
STUDY: X-RAY - RIGHT HAND REASON FOR EXAM: Female, 49 years old. Right hand/thumb pain after fall TECHNIQUE: 3 view(s) of the hand. COMPARISON: None. FINDINGS: Normal radiocarpal articulation. Normal distal radioulnar joint. Normal visualized carpal bones. Normal carpal articulations Normal carpometacarpal articulation of the thumb. Normal second through fifth carpometacarpal joints. Normal metacarpi. Normal metacarpophalangeal joint of the thumb. Normal interphalangeal joint of the thumb. Normal proximal and distal phalanges of the thumb. Normal metacarpophalangeal joints of the second through fifth fingers. Normal proximal and distal interphalangeal joints of the second through fifth fingers. Normal phalanges of the second through fifth fingers. The soft tissue structures are unremarkable. RAD/Hand Min 3 Views IMPRESSION: Normal x-ray examination of the hand. Electronically Signed: Surinder Weaver DO at 20:25 EDT Tel [phone], Service support ,
--- NOTE | 2020-01-12 20:31 | ED.DCSUM_ITS ---
- ER Visit Summary Date of Service: 01/12/20 Chief Complaint: [Injury to right hand] History of Present Illness: The patient is a 49 F [presents to the emergency department with complaint of injury to the right hand that occurred about 6:30 PM. Patient states that she normally gets around with a scooter supporting her left leg given that she had surgery about 2 weeks ago on her left foot with Dr. Doshi. Patient states that her foot slipped off the scooter and she fell trying to catch herself with her right hand. Patient injured her right hand. Patient states that her left foot did hit the ground but she really does not have much discomfort in it. Patient is right-hand dominant.] Physical Examination: [HEENT-PERRLA, EOMI. Cranial nerves II through XII grossly intact. TMs clear. Mucous membranes moist. No adenopathy. Cardiovascular-regular rate and rhythm without murmur or ectopy Lungs-clear to auscultation, chest wall stable without crepitus or subcu emphysema Abdomen-normoactive bowel sounds, soft, nontender, no rebound or rigidity, no peritoneal signs. Extremities-intact ?4, normal range of motion, normal pulses. Right hand- patient has tenderness over the thenar eminence of the thumb. Patient has pain with flexion extension at the thumb. No obvious deformity noted. There is no ecchymosis or bruising. There is a mild soft tissue swelling noted. Neurovascular intact distally. No tenderness about the wrist.] Test Results: [X-rays of the right hand were normal] Emergency Department Course and Treatment: [Patient given an Stanislav wrap] Treatment Plan: [Patient advised to follow-up with primary care physician in 5 to 7 days.] Disposition: [Discharged home in stable condition] Impression: [Right hand sprain] This note was generated with [employer] software. It may contain incorrect words, spelling, and punctuation that were not noted in review of the chart prior to signing ED Disposition - Plan for ED Patient: Referrals: Angel Graves MD [Primary Care Provider] -
--- NOTE | 2020-01-12 20:33 | ED.DEP ---
ED Disposition - Plan for ED Patient: Instructions: Sprain Hand Referrals: Angel Graves MD [Primary Care Provider] - 5-7 Days
== END 2020-01-12 20:46 | disposition home or self-care (01) ==
LOC: ED 20:26
PROVIDERS: Emergency Provider Emergency Medicine; PCP Family Medicine
DX: S63.91XA Sprain of unspecified part of right wrist and hand, initial encounter (principal); Z98.890 Other specified postprocedural states; V00.831A Fall from motorized mobility scooter, initial encounter; Y93.I9 Activity, other involving external motion; Y92.89 Other specified places as the place of occurrence of the external cause; Y99.8 Other external cause status
CPT/HCPCS: 73130; 99282

== ENCOUNTER → 2020-07-13 18:30 | Outpatient (RCR) | payer BC, SELFPAY ==
--- NOTE | 2020-03-01 08:28 | HP.PTEVAL_ITS ---
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 Date of Evaluation: 02/25/20 Physical Therapist: Franko Chandler DPT - Visit Plan Frequency: 2x /Week Duration: 4-8 weeks Plan: Start with ROM, ankle/foot strengtheing. PRogress gait per allowed progression. - Subjective Subjective: Pt. is here today for her initial evaluation with diagnosis of hallux valgus with surgical correction, mid foot arthrodesis, and 2nd hammer toe correction. DOS: 01/01/20. Pt. arrives today with CAM boot without AD. Pt. is to be partial WBing progressing per radiological reviews. Pt. reports I really couldn't do the crutches. Pt. reports being in boot with all walking. Pt. is sleeping well. Pt. reports no pain currently. Pt. reports being pleased to follow up with physician in 2 weeks. Pt. is hopeful to get back to all recreational and work activities without limitations. - Pain L foot Pain Intensity (Out of 10): 0 Pain Intensity Range: 0, 4 - Objective POSTURE: Pt. has normal posture in stance with partial WBing. PALPATION: pt. has good healing incisions, no signs of infection. Negative homans sign. Small amount of edema, non pitting. NEURO: normal throughout. ROM: L foot: Pt. has good active ROM of all of her toes. Pt. has good ankle mobility, 8deg of DF, good plantar flexion, great (full INV/EVR). Did not stress digit over pressure. MMT: Pt. had 4/5 strength throughout ankle and foot. GAIT: Pt. walks with pressure thoughout heel. I stressed to her about partial WBing with FWW/crutches, pt. reports that she is unwilling to do this. - Goals Goal 1:: LTG: Pt. to be I with HEP. Goal Time Frame: 4-6 Weeks Goal 2:: STG: Pt. to have no pain with sleeping. Goal Time Frame: 2-4 Weeks Goal 3:: LTG: Pt. get back to walking without AD without increase in symptoms. Goal Time Frame: 6-8 Weeks Goal 4:: LTG: Pt. to have increased strength throughout ankle and foot by 1/2 grade of all effected musculature. Goal Time Frame: 4-6 Weeks Goal 5:: LTG: Pt. to get back to all recreational and work activities without limitations. Goal Time Frame: 6-8 Weeks - Rehabilitation Potential Physical Therapy Diagnosis: Pt. has signs and symptoms consistent with hallux valgus with surgical correction, mid foot arthrodesis, and 2nd hammer toe correction. Pt. has marked weakness, ROM and difficuly with walking. I told her to use her crutches and maintain partial WBing. Pt. would benefit from PT to progres back to all recreational activities without limitation. Rehabilitation Potential: Excellent - Anticipated Interventions Patient/Client Instruction: Educate patient on: Condition, Plan of Care, Risk Factors, Benefits of Fitness Program For the Purpose of:: To foster healthy habits, To improve decision making, To facilitate caregiver knowledge, To improve self management, To prevent re- injury, To improve ability to perform tasks related to life management, To improve tolerance to ADL's Therapeutic Exercise to Include: Strength training, Power training, Balance training, Coordination, Postural training, Flexibilty training, Gait and locomotor training, Passive ROM, Active ROM For the Purpose of:: To decrease pain, To decrease swelling/inflammation, To increase ROM, To improve nutrient delivery to tissue, To improve muscle performance and motor function, To improve ability to perform ADL's, To increase tolerance to activity/condition/position, To improve performance and independence with ADL's, To improve ability of physical actions for home/community/work/leisure, To improve gait and locomotor functions, To improve health of tissue, To decrease soft tissue restriction, To increase flexibility/ROM Thank you for the opportunity to evaluate your patient. For Medicare and Medicare HMO plans, please review the plan of care and approve it. It will need to be FAXED BACK to us at [phone] for Medicare purposes. For Medicare only, by signing this I certify the plan of care. Please let me know if there are questions or concerns regarding this plan of care. Physician Signature: Date:
--- NOTE | 2020-04-17 11:54 | HP.PTREVAL_ITS ---
Dr. Sherry Doshi, DPM, It has been my pleasure to treat PARMINDER MART over the last 4 visits for hallux valgus with surgical correction, mid foot arthrodesis, and 2nd hamme. Please see the progress note below for an update on the physical therapy plan of care! Subjective: Pt. reports I am doing okay, but the outside of my foot is a little more sore today. Pt. reports beign HEP compliant without issues. She has increased her walking a bit more. Objective/Function: I talked to her about slowly increasing her mobility, rather than doing a bit increase in tissue stress. Pt. consents. Overall her ROM and strength is doing well. She needs to just not over doing. Pt. to see physcian in 2 weeks. Plan Plan: Start with ROM, ankle/foot strengtheing. PRogress gait per allowed progression. Goals Goal 1:: LTG: Pt. to be I with HEP. Goal Time Frame: 4-6 Weeks Goal Progress: Progressing Goal 2:: STG: Pt. to have no pain with sleeping. Goal Time Frame: 2-4 Weeks Goal Progress: Goal Met Goal 3:: LTG: Pt. get back to walking without AD without increase in symptoms. Goal Time Frame: 6-8 Weeks Goal Progress: Progressing Goal 4:: LTG: Pt. to have increased strength throughout ankle and foot by 1/2 grade of all effected musculature. Goal Time Frame: 4-6 Weeks Goal Progress: Progressing Goal 5:: LTG: Pt. to get back to all recreational and work activities without limitations. Goal Time Frame: 6-8 Weeks Goal Progress: Progressing Anticipated Interventions Patient/Client Instruction: Educate patient on: Condition, Plan of Care, Risk Factors, Benefits of Fitness Program For the Purpose of:: To foster healthy habits, To improve decision making, To facilitate caregiver knowledge, To improve self management, To prevent re- injury, To improve ability to perform tasks related to life management, To improve tolerance to ADL's Therapeutic Exercise to Include: Strength training, Power training, Balance training, Coordination, Postural training, Flexibilty training, Gait and locomotor training, Passive ROM, Active ROM For the Purpose of:: To decrease pain, To decrease swelling/inflammation, To increase ROM, To improve nutrient delivery to tissue, To improve muscle performance and motor function, To improve ability to perform ADL's, To increase tolerance to activity/condition/position, To improve performance and independence with ADL's, To improve ability of physical actions for home/community/work/leisure, To improve gait and locomotor functions, To improve health of tissue, To decrease soft tissue restriction, To increase flexibility/ROM Please do not hesitate to contact me at [phone] by phone or if you have questions or concerns regarding this new plan of care! Sincerely, CODY BrianT
--- NOTE | 2020-06-09 09:36 | HP.PTREVAL_ITS ---
Dr. Sherry Doshi, DPM, It has been my pleasure to treat PARMINDER MART over the last 12 visits for hallux valgus with surgical correction, mid foot arthrodesis, and 2nd hamme. Please see the progress note below for an update on the physical therapy plan of care! Subjective: Pt. reports overall improvement with PT. Pt. is back to walking upto 45 min recreationaly. Pt. does have some arch soreness, but is improving. She is wearing orthotics upto 8 hours daily now without issues. Pt. is HEP compliant. She is working with some soreness throughout the day. Objective/Function: ROM: Pt. has good ankel DF, still stiff with great toe flexion, but extension is doing well. MMT: 5-/5 throughout. GAIT: Pt. walks with increased R foot toeing out compared to L side. Pt. has reduced DF of R side and toeing out to make up for this limitation. Pt. continues to be sore at her anterior ankle with giat, but arch was much better post PT. Pt. would benefit from PT to continue to progress functional strengthening and progression tissue tolerance to more complex activities for longer periods of time. Plan Plan: Requesting visits x1 per week for 4 weeks. Goals Goal 1:: LTG: Pt. to be I with HEP. Goal Time Frame: 4-6 Weeks Goal Progress: Progressing Goal 2:: STG: Pt. to have no pain with sleeping. Goal Time Frame: 2-4 Weeks Goal Progress: Goal Met Goal 3:: LTG: Pt. get back to walking without AD without increase in symptoms. Goal Time Frame: 6-8 Weeks Goal Progress: Goal Met Goal 4:: LTG: Pt. to have increased strength throughout ankle and foot by 1/2 grade of all effected musculature. Goal Time Frame: 4-6 Weeks Goal Progress: Progressing Goal 5:: LTG: Pt. to get back to all recreational and work activities without limitations. Goal Time Frame: 6-8 Weeks Goal Progress: Progressing Anticipated Interventions Patient/Client Instruction: Educate patient on: Condition, Plan of Care, Risk Factors, Benefits of Fitness Program For the Purpose of:: To foster healthy habits, To improve decision making, To facilitate caregiver knowledge, To improve self management, To prevent re- injury, To improve ability to perform tasks related to life management, To improve tolerance to ADL's Therapeutic Exercise to Include: Strength training, Power training, Balance training, Coordination, Postural training, Flexibilty training, Gait and locomotor training, Passive ROM, Active ROM For the Purpose of:: To decrease pain, To decrease swelling/inflammation, To increase ROM, To improve nutrient delivery to tissue, To improve muscle performance and motor function, To improve ability to perform ADL's, To increase tolerance to activity/condition/position, To improve performance and independence with ADL's, To improve ability of physical actions for home/community/work/leisure, To improve gait and locomotor functions, To improve health of tissue, To decrease soft tissue restriction, To increase flexibility/ROM Please do not hesitate to contact me at [phone] by phone or Fax: if you have questions or concerns regarding this new plan of care! Sincerely, CODY BrianT
--- NOTE | 2020-08-22 07:45 | HP.PTDCNRP_ITS ---
PARMINDER MART was seen in my office for initial evaluation on 02/25/20. The following Plan of Care was established for this patient: Initial Frequency: 2x /Week Initial Duration: 4-8 weeks Patient/Client Instruction: Educate patient on: Condition, Plan of Care, Risk Factors, Benefits of Fitness Program For the Purpose of:: To foster healthy habits, To improve decision making, To facilitate caregiver knowledge, To improve self management, To prevent re- injury, To improve ability to perform tasks related to life management, To improve tolerance to ADL's Therapeutic Exercise to Include: Strength training, Power training, Balance training, Coordination, Postural training, Flexibilty training, Gait and locomotor training, Passive ROM, Active ROM For the Purpose of:: To decrease pain, To decrease swelling/inflammation, To i ncrease ROM, To improve nutrient delivery to tissue, To improve muscle performance and motor function, To improve ability to perform ADL's, To increase tolerance to activity/condition/position, To improve performance and independence with ADL's, To improve ability of physical actions for home/community/work/leisure, To improve gait and locomotor functions, To improve health of tissue, To decrease soft tissue restriction, To increase flexibility/ROM This patient was last seen in our office 07/13/20. Pertinent comments regarding their Physical therapy will appear below: Pt. was seen in PT after her L foot surgery. Pt. has been slowly progressing back to all fucntional activities. She was still having some soreness, but her pain tended to migrate around depending on the day and activity levels. Pt. was given some exercises to work on at home. Pt. has not been see in ~6 weeks and will be DC from PT at this point in time. At this point I will be discontinuing this patient from physical therapy. I would be happy to see this patient again in the future if found appropriate by the physician. Thank you! Franko Chandler DPT
== END | disposition home or self-care (01) ==
LOC: PT 02-25 07:46
PROVIDERS: PCP Family Medicine; Referring Provider Podiatrist; Visit Provider Podiatrist
DX: Z98.890 Other specified postprocedural states (principal)
CPT/HCPCS: 97110; 97140; 97161; 97164

== ENCOUNTER → 2020-11-02 16:51 | Outpatient (CLI) | payer BC, SELFPAY | PROVIDERS: Visit Provider Family Medicine | DX: N39.0 Urinary tract infection, site not specified (principal) | CPT/HCPCS: 87086; 87088; 87186 ==

== ENCOUNTER 2020-11-24 08:54 | Outpatient (RCR) | payer BC, SELFPAY | END 2020-11-24 23:59 | LOC: IMMUN 08:54 | PROVIDERS: PCP Family Medicine; Visit Provider Family Medicine | DX: Z23 Encounter for immunization (principal) | CPT/HCPCS: 0011A; 0012A; 91301 ==

== ENCOUNTER → 2022-03-03 | Outpatient (CLI) | payer BC, SELFPAY ==
[2022-03-03 07:47] LABS: Absolute Lymphocyte Count 4.07 X10^3/uL (0.83-4.51); Absolute Neutrophil Count 4.9 X10^3/uL (2.0-7.7); Basophil# 0.02 X10^3/uL; Basophil% 0.2 % (0-1); Eosinophil# 0.32 X10^3/uL; Eosinophils% 3.2 % (0-5); Hematocrit 39.9 % (37-47); Hemoglobin 13.1 g/dL (12.0-15.0); Lymphocyte # 4.07 X10^3/ul (0.83-4.51); Lymphocyte % 41.2 % (19-41); Mean Corp Hgb Conc 32.8 g/dL (32-36); Mean Corpuscular Hgb 29.4 pg (27.0-32.0); Mean Corpuscular Volume 89.5 fL (81-99); Mean Platelet Vol. 8.1 fl (6.2-12.0); Monocyte# 0.55 X10^3/uL; Monocyte% 5.6 % (0-10); NRBC Flagged by Analyzer 0 % (0-5); Neutrophil % 49.5 % (47-70); Platelet Count 297 K/mm3 (150-450); RBC Distribution Width CV 12.9 % (11.6-14.6); RBC Distribution Width SD 42.1 fl (35.1-43.9); Red Blood Count 4.46 M/mm3 (4.2-5.4); White Blood Count 9.9 K/mm3 (4.4-11.0)
[2022-03-03 07:53] LABS: Hemoglobin A1c 5.4 % (3.8-5.6)
[2022-03-03 08:08] LABS: ALB/GLOB Ratio 0.8 RATIO (0.9-2.4); AST(SGOT) 12 U/L (15-37); Alanine Aminotransfer ALT/SGPT 18 U/L (13-56); Albumin, Serum 3.1 g/dL (3.2-5.0); Alkaline Phosphatase 109 U/L (45-117); Anion Gap 4 (5-15); BUN 11 mg/dL (7-18); BUN/Creat Ratio 13.8 RATIO (10-20); Calcium,Total 8.7 mg/dL (8.5-10.1); Chloride 108 mmol/L (98-107); Cholesterol 168 mg/dL (200); EST Glomerular Filtration Rate 81 mL/min (>60); Est Glom Filt Rate - Afr Amer 98 mL/min (>60); Globulin 4.1 g/dL (2.2-4.2); Glucose 98 mg/dL (74-106); High Density Lipoprotein 54 mg/dL; Potassium 3.9 mmol/L (3.5-5.1); Protein, Total 7.2 g/dL (6.4-8.2); Sodium Level 139 mmol/L (136-145); Thyroid Stim Hormone (TSH) 3.17 uIU/mL (0.358-3.74); Triglycerides 144 mg/dL; Very Low Density Lipoprotein 29 mg/dL (5-40)
== END | disposition home or self-care (01) ==
LOC: LAB 07:23
PROVIDERS: PCP Family Medicine; Visit Provider Family Medicine
DX: F33.1 Major depressive disorder, recurrent, moderate (principal); E66.9 Obesity, unspecified
CPT/HCPCS: 36415; 80053; 80061; 83036; 84443; 85025

== ENCOUNTER → 2023-02-18 | Outpatient (CLI) | payer BC, SELFPAY ==
[2023-02-18 17:35] LABS: Absolute Lymphocyte Count 2.51 X10^3/uL (0.83-4.51); Absolute Neutrophil Count 4.8 X10^3/uL (2.0-7.7); Basophil# 0.01 X10^3/uL; Basophil% 0.1 % (0-1); Eosinophil# 0.17 X10^3/uL; Eosinophils% 2.1 % (0-5); Hematocrit 42.6 % (37-47); Hemoglobin 14.2 g/dL (12.0-15.0); Lymphocyte # 2.51 X10^3/ul (0.83-4.51); Lymphocyte % 31.2 % (19-41); Mean Corp Hgb Conc 33.3 g/dL (32-36); Mean Corpuscular Hgb 29.1 pg (27.0-32.0); Mean Corpuscular Volume 87.3 fL (81-99); Mean Platelet Vol. 8.1 fl (6.2-12.0); Monocyte# 0.53 X10^3/uL; Monocyte% 6.6 % (0-10); NRBC Flagged by Analyzer 0 % (0-5); Neutrophil % 59.8 % (47-70); Platelet Count 262 K/mm3 (150-450); RBC Distribution Width CV 12.8 % (11.6-14.6); Red Blood Count 4.88 M/mm3 (4.2-5.4)
[2023-02-18 18:38] LABS: Anion Gap 5 (5-15); BUN 8 mg/dL (7-18); BUN/Creat Ratio 10.7 RATIO (10-20); Calcium,Total 8.5 mg/dL (8.5-10.1); Chloride 108 mmol/L (98-107); Creatinine, Serum 0.74 mg/dL (0.55-1.02); EST Glomerular Filtration Rate 88 mL/min (>60); Est Glom Filt Rate - Afr Amer 106 mL/min (>60); Glucose 114 mg/dL (74-106); Potassium 3.3 mmol/L (3.5-5.1); Sodium Level 136 mmol/L (136-145)
[2023-02-18 19:08] LABS: Internal QC Validated? YES +Cl - CLEAR BKGD; Monotest Negative (Negative)
== END | disposition home or self-care (01) ==
PROVIDERS: PCP Family Medicine; Visit Provider Nurse Practitioner Family
DX: R50.9 Fever, unspecified (principal)
CPT/HCPCS: 36415; 80048; 85025; 86308

== ENCOUNTER → 2023-03-22 | Outpatient (CLI) | payer BC, SELFPAY ==
[2023-03-22 10:49] LABS: Hemoglobin A1c 5.5 % (3.8-5.6)
[2023-03-22 10:51] LABS: ALB/GLOB Ratio 0.6 RATIO (0.9-2.4); AST(SGOT) 15 U/L (15-37); Alanine Aminotransfer ALT/SGPT 21 U/L (13-56); Alkaline Phosphatase 123 U/L (45-117); Anion Gap 6 (5-15); BUN 13 mg/dL (7-18); BUN/Creat Ratio 18.3 RATIO (10-20); Calcium,Total 9.1 mg/dL (8.5-10.1); Chloride 108 mmol/L (98-107); Cholesterol 169 mg/dL (200); Creatinine, Serum 0.71 mg/dL (0.55-1.02); EST Glomerular Filtration Rate 93 mL/min (>60); Est Glom Filt Rate - Afr Amer 112 mL/min (>60); Globulin 4.7 g/dL (2.2-4.2); Glucose 94 mg/dL (74-106); High Density Lipoprotein 45 mg/dL; Magnesium 2.2 mg/dL (1.6-2.6); Potassium 3.7 mmol/L (3.5-5.1); Protein, Total 7.7 g/dL (6.4-8.2); Sodium Level 141 mmol/L (136-145); Thyroid Stim Hormone (TSH) 3.23 uIU/mL (0.358-3.74); Triglycerides 260 mg/dL; Very Low Density Lipoprotein 52 mg/dL (5-40)
== END | disposition home or self-care (01) ==
LOC: MTLAB 07:29
PROVIDERS: PCP Family Medicine; Referring Provider Nurse Practitioner Family; Visit Provider Nurse Practitioner Family
DX: Z00.01 Encounter for general adult medical examination with abnormal findings (principal); E66.9 Obesity, unspecified
CPT/HCPCS: 36415; 80053; 80061; 83036; 83735; 84443

== ENCOUNTER 2023-06-20 07:51 | Outpatient (RCR) | payer BC, SELFPAY ==
--- NOTE | 2023-06-20 09:01 | HP.PTEVAL_ITS ---
Patient's Visit Information Visit Information Visit Information: PARMINDER MART is a 52 year old F referred to Physical Therapy by Nathan Leal PA-C with a diagnosis of Pain in left elbow, M25.522; Lateral epicondylitis, M77.12. Date of Evaluation: 06/20/23 Physical Therapist: Shailesh Winn Visit Plan Frequency: 2x /Week Duration: 6 Weeks Plan: Continue with wrist extensor stretching, elbow/wrist strengthening especially eccentric wrist extension. Also continue with manual therapy and use modalities as needed for pain control. Subjective Subjective: Pt. is a 52 y.o. female who has been having left elbow pain since 05-27-23 when she was doing a walking plank and noticed pain in her left elbow. Her PLOF includes no history of left elbow pain in the past. She had x-ray of her left elbow which was negative. She had recent cortisone shot which has really helped. Pt. is right handed. She denies any numbness or tingling in her left arm. Pt. has difficulty with gripping things, picking things up, carrying things, occasionally sleeping, driving, squeezing things, housework, and yard work. Pt. works for the [employer]. Her goal with physical therapy is to get rid of the pain. She has had previous physical therapy for her left foot. Pt. rates left elbow pain at 1/10 currently, at 7/10, at best 0/10 and describes the pain as sharp. Pt. will occasionally take Ibuprofen for pain. Her PMH includes left foot buniectomy, left ankle surgery, scoliosis surgery, two C-sections, gall bladder removed, and appendectomy. Her hobbies include going to her kids activities, watching tv, and exercising. Objective Objective: Palpation- Tenderness over left lateral epicondyle area Posture- Good posture in sitting Cervical AROM- WNL for all motions AROM left shoulder- WNL for all motions AROM right shoulder- WNL for all motions AROM left elbow- WNL for flexion and extension AROM right elbow- WNL for flexion and extension AROM left wrist- WNL for all motions AROM right wrist- WNL for all motions Left shoulder strength- Grossly 5/5 for all motions Right shoulder strength- Grossly 5/5 for all motions Left elbow strength- 5/5 Right elbow strength- 5/5 Left wrist strength- flexion 5/5, extension 4+/5, RD 4+/5, UD 5/5, Supination 4+/5, Pronation 5/5 Right wrist strength- flexion 5/5, extension 5/5, RD 5/5, UD 5/5, Supination 5/5, Pronation 5/5 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 will be able to sleep a full night with no left elbow pain. Goal Time Frame: 4-6 Weeks Goal 2:: Pt. will be able to drive with no left elbow pain. Goal Time Frame: 4-6 Weeks Goal 3:: Pt. will be able to lift at least 15# with no left elbow pain. Goal Time Frame: 4-6 Weeks Goal 4:: Pt. will rate left elbow pain at worst at 3/10 with ADL's. Goal Time Frame: 4-6 Weeks Goal 5:: Pt. will be able to open a jar with no left elbow pain. Goal Time Frame: 4-6 Weeks Goal 6:: Pt. will improve Quick Dash by at least 10 points in order to improve ADL's. Goal Time Frame: 4-6 Weeks Rehabilitation Potential Physical Therapy Diagnosis: Decreased left elbow/wrist strength and pain. Pt. presents at this time with lateral epicondylitis of left elbow. Rehabilitation Potential: Good Anticipated Interventions Patient/Client Instruction: Educate patient on: Condition and Plan of Care For the Purpose of:: To decrease pain, To improve ability to perform ADL's, To improve performance and independence with ADL's, To assume or resume ADL's and To improve tolerance to ADL's Therapeutic Exercise to Include: Strength training and Active ROM Comment: Continue with wrist extensor stretching and wrist/elbow strengthening. For the Purpose of:: To decrease pain, To improve ability to perform ADL's, To improve performance and independence with ADL's, To assume or resume ADL's and To improve tolerance to ADL's Manual Therapy Techniques to Include: Trigger point massage, Mobilization, Functional dry needling and Soft tissue mobilization For the Purpose of:: To decrease pain, To decrease swelling/inflammation, To improve ability to perform ADL's, To improve performance and independence with ADL's, To decrease soft tissue restriction, To assume or resume ADL's and To improve tolerance to ADL's Iontophoresis (with Dexamethozone, with Acetic acid): Yes TENS: Yes IF ES: Yes Cryotherapy (ice pack, ice massage): Yes Ultrasound (thermal/non thermal): Yes For the Purpose of:: To decrease pain, To decrease swelling/inflammation, To improve ability to perform ADL's, To improve performance and independence with ADL's, To assume or resume ADL's and To improve tolerance to ADL's Text: Thank you for the opportunity to evaluate your patient. For Medicare and Medicare HMO plans, please review the plan of care and approve it. It will need to be FAXED BACK to us at [phone] for Medicare purposes. For Medicare only, by signing this I certify the plan of care. Please let me know if there are questions or concerns regarding this plan of care. Physician Signature: Date:
--- NOTE | 2023-08-08 15:32 | HP.PTDCNRP_ITS ---
Patient Information Patient Information: PARMINDER MART was seen in my office for initial evaluation on 06/20/23. The following Plan of Care was established for this patient: POC Established Initial Frequency: 2x /Week Initial Duration: 6 Weeks Anticipated Interventions Patient/Client Instruction: Educate patient on: Condition and Plan of Care For the Purpose of:: To decrease pain, To improve ability to perform ADL's, To improve performance and independence with ADL's, To assume or resume ADL's and To improve tolerance to ADL's Therapeutic Exercise to Include: Strength training and Active ROM For the Purpose of:: To decrease pain, To improve ability to perform ADL's, To improve performance and independence with ADL's, To assume or resume ADL's and To improve tolerance to ADL's Manual Therapy Techniques to Include: Trigger point massage, Mobilization, Functional dry needling and Soft tissue mobilization For the Purpose of:: To decrease pain, To decrease swelling/inflammation, To improve ability to perform ADL's, To improve performance and independence with ADL's, To decrease soft tissue restriction, To assume or resume ADL's and To improve tolerance to ADL's Iontophoresis (with Dexamethozone, with Acetic acid): Yes TENS: Yes IF ES: Yes Cryotherapy (ice pack, ice massage): Yes Ultrasound (thermal/non thermal): Yes For the Purpose of:: To decrease pain, To decrease swelling/inflammation, To improve ability to perform ADL's, To improve performance and independence with ADL's, To assume or resume ADL's and To improve tolerance to ADL's Last Seen Last Seen: This patient was last seen in our office 06/20/23. Pertinent comments regarding their Physical therapy will appear below: Pt seen one visit and POC established but patient did not schedule or attend any further visits. it has been over 6 weeks and I will discharge due to non attendance. At this point I will be discontinuing this patient from physical therapy. I would be happy to see this patient again in the future if found appropriate by the physician. Thank you! Angel Moody, DPT, OCS, CSCS Balance/Gait/Functional tests Balance/Special Test Scores Quick DASH Score: 38.6350
== END 2023-06-20 19:00 | disposition home or self-care (01) ==
LOC: PT 07:51
PROVIDERS: PCP Family Medicine; Referring Provider Physician Assistant Surgical; Visit Provider Physician Assistant Surgical
DX: M25.522 Pain in left elbow (principal); M77.12 Lateral epicondylitis, left elbow
CPT/HCPCS: 97140; 97161

== ENCOUNTER 2023-06-23 15:49 | Emergency (ER) | payer BC, SELFPAY ==
[2023-06-23 15:49] VITALS: BP 154/95; PULSE 79; RESP 16; TEMP 36.4; O2SAT 98
--- NOTE | 2023-06-23 15:58 | CT_ITS ---
EXAMINATION: CT BRAIN PERFUSION WITH CONTRAST REASON FOR EXAM: Female, 52 years old. headache Individualized dose optimization techniques were used for this CT. COMPARISON: CT head done earlier. TECHNIQUE: Routine CT brain cerebral perfusion study was performed using IV contrast. CTA imaging was analyzed by [employer] LVO ContaCT to enable computer-assisted triage and notification to rapidly detect a LVO and shorten time to notification. IV Contrast dosage and agent: 40 cc of IV OMNI 350 . FINDINGS: CBF, (<30%) Volume: 0 cc. Perfusion, (Tmax>6.0 sec) volume: 0 cc. Mismatch volume: 0 cc. Mismatch ratio: NA Infarct location: No infarct. CT/CTA Head W/WO Contrast IMPRESSION: No CT Brain Perfusion Evidence of Acute Infarct. Electronically Signed: Glynn eSqueira MD at 17:23 EDT ,
--- NOTE | 2023-06-23 16:03 | EX.ED.DYSGE1 ---
HPI History of Present Illness Chief Complaint: Headache Narrative Narrative: Patient presents with headache that started while she was at home. She tells me the onset was quite rapid. She has no vision changes. She has no photophobia. No neck pain or stiffness. No prior headaches like this. [facility] Medical History Depression IBS (irritable bowel syndrome) Home Medications baclofen 10 mg tablet 10 mg PO BID 12/25/19 [History Last Taken Unknown] escitalopram oxalate 10 mg tablet 10 mg PO DAILY 12/25/19 [History Last Taken Unknown] naltrexone 8 mg-bupropion 90 mg tablet,extended release 2 ea PO BID 12/25/19 [History Last Taken Unknown] Allergy/AdvReac Type Severity Reaction Status Date / Time No Known Allergies Allergy Verified 06/23/23 15:49 Social History Smoking Status: Former smoker ROS ROS ED ROS Narrative Past medical history: Reviewed Medications: Reviewed Social history: Noncontributory Review of systems: All systems negative except as indicated General: No fever Eyes: No visual changes ENT: No upper airway congestion, normal voice Neck: No neck pain Cardiovascular: No chest pain Respiratory: No shortness of breath or cough Gastrointestinal: No abdominal pain, nausea vomiting or diarrhea Genitourinary: No dysuria Musculoskeletal: Denies myalgias no difficulty with ambulation Skin: No rash Neurological: No memory loss, confusion or any focal weakness. Headache as in HPI EXAM Physical Exam Narrative Exam Narrative: Physical exam General: Patient appears somewhat uncomfortable. Head: Normocephalic, Atraumatic Eyes: Conjunctiva not pale ENT: Moist mucous membranes Neck: Supple, Nontender, No lymphadenopathy Cardiovascular: Regular rate, Regular rhythm Respiratory: No distress, CTA bilaterally Abdomen: Soft, Nontender, Nondistended Back: Nontender, Normal Inspection. Negative for: CVA tenderness Extremities: Nontender, No edema Skin: Normal color, No rash Neurological: Alert, Normal Strength, Normal Sensation Psychological: Normal affect Const Vital Signs: 06/23/23 15:49 Temperature 97.5 F L Temperature Source Temporal Pulse Rate 79 Respiratory Rate 16 Blood Pressure 154/95 H Blood Pressure Mean 114 Pulse Ox 98 MDM MDM MDM Narrative Medical decision making narrative: Patient told me she had a relatively rapid onset of headache. Because of this I was worried about subarachnoid, CT angiogram and CT are unremarkable. She has no neurological symptoms I am not worried about a stroke. She has no neck pain stiffness or fevers and not worried about meningitis. She was given migraine cocktail with significant improvement of her pain. She feels better and wants to go home. Do not believe she meets admission criteria specially that she improved. She has mild leukocytosis which is likely reactive since at this time I do not see any signs of infection. We will talk to her who will take her home. Lab Data Labs: Laboratory Results - last 24 hr 06/23/23 16:03 WBC 14.7 H RBC 4.65 Hgb 13.6 Hct 41.6 MCV 89.5 MCH 29.2 MCHC 32.7 RDW Std Deviation 41.5 RDW Coeff of Seble 12.7 Plt Count 362 MPV 8.1 Immature Gran % (Auto) 0.400 Neut % (Auto) 60.2 Lymph % (Auto) 31.0 Yell % (Auto) 6.7 Eos % (Auto) 1.3 Baso % (Auto) 0.4 Absolute Neuts (auto) 8.9 H Absolute Lymphs (auto) 4.56 H Nucleated RBC % 0 Sodium 139 Potassium 3.6 Chloride 108 H Carbon Dioxide 25.0 Anion Gap 6 BUN 18 Creatinine 0.83 Est GFR (MDRD) Af Amer 93 Est GFR (MDRD) Non-Af 77 BUN/Creatinine Ratio 21.7 H Glucose 102 Calcium 9.3 Total Bilirubin 0.30 AST 13 L ALT 18 Alkaline Phosphatase 136 H Total Protein 7.5 Albumin 3.3 Globulin 4.2 Albumin/Globulin Ratio 0.8 L Radiography Diagnostic Testing: Clinical Impression(s) from Imaging Studies Head CTA 06/23/23 15:58 IMPRESSION: No CT Brain Perfusion Evidence of Acute Infarct. Electronically Signed: Glynn Sequeira MD at 17:23 EDT , Discharge Plan Triage Chief Complaint: Headache ED Provider: Connor Villalpando Dx/Rx/DC Orders Clinical Impression: Headache, Leukocytosis Instructions: Understanding Headache Pain Prescriptions: No Action baclofen 10 MG tablet 10 mg PO BID escitalopram oxalate 10 MG tablet 10 mg PO DAILY naltrexone-bupropion 1 EACH tablet extended release 2 ea PO BID Primary Care Provider: Angel Graves Referrals: Angel Graves MD [Primary Care Provider] - 3-5 Days Disposition Disposition: Home, Self Care
[2023-06-23] MEDS: Metoclopramide 10 MG/2 ML Vial IV (16:09)
[2023-06-23] MEDS: DiphenhydrAMINE 50 MG/ML Syringe 25 MG IV (16:09)
[2023-06-23] MEDS: 0.9% Normal Saline 1,000 ML 1000 ML IV (16:10)
[2023-06-23 16:13] LABS: Absolute Lymphocyte Count 4.56 X10^3/uL (0.83-4.51); Absolute Neutrophil Count 8.9 X10^3/uL (2.0-7.7); Basophil# 0.06 X10^3/uL; Basophil% 0.4 % (0-1); Eosinophil# 0.19 X10^3/uL; Eosinophils% 1.3 % (0-5); Hematocrit 41.6 % (37-47); Hemoglobin 13.6 g/dL (12.0-15.0); Lymphocyte # 4.56 X10^3/ul (0.83-4.51); Mean Corp Hgb Conc 32.7 g/dL (32-36); Mean Corpuscular Hgb 29.2 pg (27.0-32.0); Mean Corpuscular Volume 89.5 fL (81-99); Mean Platelet Vol. 8.1 fl (6.2-12.0); Monocyte# 0.99 X10^3/uL; Monocyte% 6.7 % (0-10); NRBC Flagged by Analyzer 0 % (0-5); Neutrophil # 8.86 X10^3/uL (2.7-7.7); Neutrophil % 60.2 % (47-70); Platelet Count 362 K/mm3 (150-450); RBC Distribution Width CV 12.7 % (11.6-14.6); RBC Distribution Width SD 41.5 fl (35.1-43.9); Red Blood Count 4.65 M/mm3 (4.2-5.4); White Blood Count 14.7 K/mm3 (4.4-11.0)
[2023-06-23 16:33] LABS: ALB/GLOB Ratio 0.8 RATIO (0.9-2.4); AST(SGOT) 13 U/L (15-37); Alanine Aminotransfer ALT/SGPT 18 U/L (13-56); Albumin, Serum 3.3 g/dL (3.2-5.0); Alkaline Phosphatase 136 U/L (45-117); Anion Gap 6 (5-15); BUN 18 mg/dL (7-18); BUN/Creat Ratio 21.7 RATIO (10-20); Calcium,Total 9.3 mg/dL (8.5-10.1); Chloride 108 mmol/L (98-107); Creatinine, Serum 0.83 mg/dL (0.55-1.02); EST Glomerular Filtration Rate 77 mL/min (>60); Est Glom Filt Rate - Afr Amer 93 mL/min (>60); Globulin 4.2 g/dL (2.2-4.2); Glucose 102 mg/dL (74-106); Potassium 3.6 mmol/L (3.5-5.1); Protein, Total 7.5 g/dL (6.4-8.2); Sodium Level 139 mmol/L (136-145)
[2023-06-23 17:47] VITALS: BP 117/60; PULSE 74; RESP 16; O2SAT 99
== END 2023-06-23 17:49 | disposition home or self-care (01) ==
PROVIDERS: Emergency Provider Emergency Medicine; PCP Family Medicine; Visit Provider Emergency Medicine
DX: R51.9 Headache, unspecified (principal); D72.829 Elevated white blood cell count, unspecified; Z87.891 Personal history of nicotine dependence
CPT/HCPCS: 70496; 80053; 85025; 96361; 96374; 96375; 99284; J7030; Q9967

== ENCOUNTER → 2025-04-09 | Outpatient (CLI) | payer OTHER, SELFPAY ==
[2025-04-09 10:25] LABS: Absolute Lymphocyte Count 3.17 X10^3/uL (0.83-4.51); Absolute Neutrophil Count 5.6 X10^3/uL (2.0-7.7); Basophil# 0.03 X10^3/uL; Basophil% 0.3 % (0-1); Eosinophil# 0.19 X10^3/uL; Hematocrit 38.3 % (37-47); Hemoglobin 12.6 g/dL (12.0-15.0); Lymphocyte # 3.17 X10^3/ul (0.83-4.51); Lymphocyte % 33.1 % (19-41); Mean Corp Hgb Conc 32.9 g/dL (32-36); Mean Corpuscular Hgb 29.6 pg (27.0-32.0); Mean Corpuscular Volume 90.1 fL (81-99); Mean Platelet Vol. 8.4 fl (6.2-12.0); Monocyte# 0.59 X10^3/uL; Monocyte% 6.2 % (0-10); NRBC Flagged by Analyzer 0 % (0-5); Neutrophil # 5.58 X10^3/uL (2.7-7.7); Neutrophil % 58.2 % (47-70); Platelet Count 205 K/mm3 (150-450); RBC Distribution Width CV 12.7 % (11.6-14.6); RBC Distribution Width SD 41.8 fl (35.1-43.9); Red Blood Count 4.25 M/mm3 (4.2-5.4); White Blood Count 9.6 K/mm3 (4.4-11.0)
[2025-04-09 10:46] LABS: Hemoglobin A1c 5.7 % (<=5.6)
[2025-04-09 11:01] LABS: ALB/GLOB Ratio 1.4 RATIO (0.9-2.4); AST(SGOT) 21 U/L (<=31); Alanine Aminotransfer ALT/SGPT 19 U/L (<=34); Albumin, Serum 3.9 g/dL (3.5-5.0); Alkaline Phosphatase 105 U/L (35-104); Anion Gap 9 (5-15); BUN 11 mg/dL (4-19); BUN/Creat Ratio 14.3 RATIO (10-20); Carbon Dioxide 24.2 mmol/L (21.0-32.0); Chloride 107 mmol/L (98-108); Cholesterol 135 mg/dL (<=200); Creatinine, Serum 0.74 mg/dL (0.70-1.20); EST Glomerular Filtration Rate 98 (>60); Globulin 2.8 g/dL (2.2-4.2); Glucose 91 mg/dL (70-99); High Density Lipoprotein 33 mg/dL; Low Density Lipoprotein Calc. 72 mg/dL; Potassium 3.9 mmol/L (3.3-5.1); Protein, Total 6.7 g/dL (5.9-8.4); Sodium Level 140 mmol/L (133-145); Total Bilirubin 0.32 mg/dL (0.00-1.30); Triglycerides 149 mg/dL; Very Low Density Lipoprotein 30 mg/dL (5-40)
== END | disposition home or self-care (01) ==
LOC: MTLAB 07:50
PROVIDERS: PCP Family Medicine; Referring Provider Family Medicine; Visit Provider Family Medicine
DX: E66.9 Obesity, unspecified (principal); Z68.35 Body mass index [BMI] 35.0-35.9, adult
CPT/HCPCS: 36415; 80053; 80061; 83036; 84443; 85025

== ENCOUNTER → 2025-06-28 | Outpatient (CLI) | payer OTHER, SELFPAY | END | disposition home or self-care (01) | LOC: PSN 13:05 | PROVIDERS: PCP Family Medicine; Referring Provider Nurse Practitioner Family; Visit Provider Nurse Practitioner Family | DX: J45.991 Cough variant asthma (principal) | CPT/HCPCS: 94060; 94726; 94729 ==

== ENCOUNTER → 2025-09-02 | Outpatient (CLI) | payer OTHER, SELFPAY ==
--- NOTE | 2025-09-02 06:47 | MRI_ITS ---
PROCEDURE: MRI/Upper Ext Joint Only(Routine)
== END | disposition home or self-care (01) ==
LOC: OPMRI 07:01
PROVIDERS: PCP Family Medicine; Referring Provider Physician Assistant Surgical; Visit Provider Physician Assistant Surgical
DX: S46.012D Strain of muscle(s) and tendon(s) of the rotator cuff of left shoulder, subsequent encounter (principal)
CPT/HCPCS: 73221

== ENCOUNTER → 2025-09-17 | Outpatient (CLI) | payer OTHER, SELFPAY | END | disposition home or self-care (01) | LOC: SL 13:51 | PROVIDERS: PCP Family Medicine; Referring Provider Nurse Practitioner Family; Visit Provider Nurse Practitioner Family | DX: G47.33 Obstructive sleep apnea (adult) (pediatric) (principal) | CPT/HCPCS: 98960; G0463 ==